=== PATIENT | female | born 1965 | race Caucasian/White ===

== ENCOUNTER 2018-03-26 20:19 | Observation (INO) | payer BC ==
[2018-03-26 20:58] LABS: Anisocytosis Slight; Basophils % (A) 0 %; Eosinophils # (A) 0.1 k/uL (0-0.7); Eosinophils % (A) 1 %; HCT 35.7 % (34.0-46.0); HGB 10.6 gm/dL (11.4-16.0); Hypochromasia Marked; Lymphocytes # (A) 1.6 k/uL (1.0-4.8); Lymphocytes % (A) 18 %; MCH 19.3 pg (25.0-35.0); MCHC 29.8 g/dL (31.0-37.0); MCV 64.8 fL (80.0-100.0); Mean Platelet Volume 6.2; Microcytosis Marked; Monocytes # (A) 0.2 k/uL (0-1.0); Monocytes % (A) 3 %; Neutrophils # (A) 6.9 k/uL (1.3-7.7); Neutrophils % (A) 77 %; Platelet Count 334 k/uL (150-450); Poikilocytosis Slight; RBC 5.51 m/uL (3.80-5.40); RDW 17.2 % (11.5-15.5); WBC 8.9 k/uL (3.8-10.6)
--- NOTE | 2018-03-26 21:04 | XR ---
EXAMINATION TYPE: XR chest 2V DATE OF EXAM: 03/26/2018 COMPARISON: NONE HISTORY: Chest pain TECHNIQUE: Frontal and lateral views of the chest are obtained. FINDINGS: Right infrahilar peribronchial cuffing seen on the lateral and frontal images around the br onchus intermedius may relate to bronchitis or reactive airway disease. There is no focal air space o pacity, pleural effusion, or pneumothorax seen. The cardiac silhouette size is upper limits of rubin l. The osseous structures are intact. IMPRESSION: Peribronchial cuffing around the bronchus intermedius may relate to bronchitis or reacti ve airway disease.
[2018-03-26 21:05] LABS: Partial Thromboplastin Time 23.3 sec (22.0-30.0)
[2018-03-26 21:13] LABS: ALT 14 U/L (9-52); AST 23 U/L (14-36); Albumin 4.2 g/dL (3.5-5.0); Alkaline Phosphatase 64 U/L (38-126); Anion Gap 10 mmol/L; Blood Urea Nitrogen 7 mg/dL (7-17); Calcium 9.2 mg/dL (8.4-10.2); Carbon Dioxide 20 mmol/L (22-30); Chloride 108 mmol/L (98-107); Glucose 95 mg/dL (74-99); Magnesium 1.9 mg/dL (1.6-2.3); Potassium 3.6 mmol/L (3.5-5.1); Sodium 138 mmol/L (137-145); Total Bilirubin 0.6 mg/dL (0.2-1.3); Total Protein 6.9 g/dL (6.3-8.2)
[2018-03-26 21:17] LABS: Creatine Kinase 67 U/L (30-135)
[2018-03-26 21:30] LABS: Creatine Kinase MB 0.4 ng/mL (0.0-2.4); Troponin I <0.012 ng/mL (0.000-0.034)
[2018-03-26] MEDS ORDERED: SODIUM CHLORIDE 0.9% 1,000 ML IV STA (21:34)
--- NOTE | 2018-03-26 22:02 | ED ---
General Adult HPI - General Chief complaint: Chest Pain Stated complaint: Chest Pain Time Seen by Provider: 03/26/18 20:26 Source: patient, RN notes reviewed, old records reviewed Mode of arrival: wheelchair Limitations: no limitations - History of Present Illness Initial comments: This is a 52-year-old female the ER for evaluation no medical history company of chest pain weakness. Patient has no medical history. No recent travel history or sick contacts no headaches. Patient is having difficulty expressing story difficulty speaking with staff, noncontributory to history and physical, the patient does currently chest pain, weakness, - Related Data Home Medications Medication Instructions Recorded Confirmed Ibuprofen [Advil] 600 mg PO Q8HR PRN 03/26/18 03/26/18 Allergies Allergy/AdvReac Type Severity Reaction Status Date / Time No Known Allergies Allergy Verified 03/26/18 21:11 Review of Systems ROS Statement: Those systems with pertinent positive or pertinent negative responses have been documented in the HPI. ROS Other: All systems not noted in ROS Statement are negative. Past Medical History Past Medical History: No Reported History History of Any Multi-Drug Resistant Organisms: None Reported Past Surgical History: No Surgical Hx Reported Past Psychological History: No Psychological Hx Reported Smoking Status: Current every day smoker Past Alcohol Use History: None Reported Past Drug Use History: None Reported General Exam Limitations: no limitations General appearance: alert, in no apparent distress, lethargic Head exam: Present: atraumatic, normocephalic, normal inspection Eye exam: Present: normal appearance, PERRL, EOMI. Absent: scleral icterus, conjunctival injection, periorbital swelling ENT exam: Present: normal exam, mucous membranes moist Neck exam: Present: normal inspection. Absent: tenderness, meningismus, lymphadenopathy Respiratory exam: Present: normal lung sounds bilaterally. Absent: respiratory distress, wheezes, rales, rhonchi, stridor Cardiovascular Exam: Present: regular rate, normal rhythm, normal heart sounds. Absent: systolic murmur, diastolic murmur, rubs, gallop, clicks GI/Abdominal exam: Present: soft, normal bowel sounds. Absent: distended, tenderness, guarding, rebound, rigid Extremities exam: Present: normal inspection, full ROM, normal capillary refill. Absent: tenderness, pedal edema, joint swelling, calf tenderness Back exam: Present: normal inspection Neurological exam: Present: alert, oriented X3, CN II-XII intact Psychiatric exam: Present: normal affect, normal mood Skin exam: Present: warm, dry, intact, normal color. Absent: rash Course Vital Signs 03/26/18 03/26/18 03/26/18 20:24 20:27 21:15 Temperature 98.5 F 97.6 F Pulse Rate 120 H 103 H 90 Respiratory 22 20 16 Rate Blood Pressure 154/82 122/76 150/70 O2 Sat by Pulse 100 100 100 Oximetry 03/26/18 21:43 Temperature Pulse Rate 85 Respiratory Rate Blood Pressure 158/77 O2 Sat by Pulse 100 Oximetry - Reevaluation(s) Reevaluation #1: 03/26/18 22:25 Medical history is reviewed and noncontributory Reevaluation #2: 03/26/18 22:25 Patient continues to be in remain acidotic EKG Findings - EKG Comments: EKG Findings:: EKG shows sinus tachycardia rate 102, IA 144, QRS 90, QTc 479 Medical Decision Making - Medical Decision Making 52 female with multiple nonspecific complaints. Patient with chest pain weakness. X-ray CTA chest negative currently. Patient will be admitted for continued neurological assessment evaluation for pending illogical complaint at this point patient be kept off) of symptoms being so atypical, admitted for cardiac observation - Lab Data Result diagrams: 03/26/18 20:42 03/26/18 20:42 Lab Results 03/26/18 03/26/18 03/26/18 Range/Units 20:42 20:42 20:42 WBC 8.9 (3.8-10.6) k/uL RBC 5.51 H (3.80-5.40) m/uL Hgb 10.6 L (11.4-16.0) gm/dL Hct 35.7 (34.0-46.0) % MCV 64.8 L (80.0-100.0) fL MCH 19.3 L (25.0-35.0) pg MCHC 29.8 L (31.0-37.0) g/dL RDW 17.2 H (11.5-15.5) % Plt Count 334 (150-450) k/uL Neutrophils % 77 % Lymphocytes % 18 % Monocytes % 3 % Eosinophils % 1 % Basophils % 0 % Neutrophils # 6.9 (1.3-7.7) k/uL Lymphocytes # 1.6 (1.0-4.8) k/uL Monocytes # 0.2 (0-1.0) k/uL Eosinophils # 0.1 (0-0.7) k/uL Basophils # 0.0 (0-0.2) k/uL Hypochromasia Marked Poikilocytosis Slight Anisocytosis Slight Microcytosis Marked PT (9.0-12.0) sec INR (<1.2) APTT (22.0-30.0) sec Sodium 138 (137-145) mmol/L Potassium 3.6 (3.5-5.1) mmol/L Chloride 108 H (98-107) mmol/L Carbon Dioxide 20 L (22-30) mmol/L Anion Gap 10 mmol/L BUN 7 (7-17) mg/dL Creatinine 0.61 (0.52-1.04) mg/dL Est GFR (CKD-EPI)AfAm >90 (>60 ml/min/1.73 sqM) Est GFR (CKD-EPI)NonAf >90 (>60 ml/min/1.73 sqM) Glucose 95 (74-99) mg/dL Calcium 9.2 (8.4-10.2) mg/dL Magnesium 1.9 (1.6-2.3) mg/dL Total Bilirubin 0.6 (0.2-1.3) mg/dL AST 23 (14-36) U/L ALT 14 (9-52) U/L Alkaline Phosphatase 64 (38-126) U/L Total Creatine Kinase 67 (30-135) U/L CK-MB (CK-2) 0.4 (0.0-2.4) ng/mL CK-MB (CK-2) Rel Index 0.6 Troponin I <0.012 (0.000-0.034) ng/mL Total Protein 6.9 (6.3-8.2) g/dL Albumin 4.2 (3.5-5.0) g/dL 03/26/18 Range/Units 20:42 WBC (3.8-10.6) k/uL RBC (3.80-5.40) m/uL Hgb (11.4-16.0) gm/dL Hct (34.0-46.0) % MCV (80.0-100.0) fL MCH (25.0-35.0) pg MCHC (31.0-37.0) g/dL RDW (11.5-15.5) % Plt Count (150-450) k/uL Neutrophils % % Lymphocytes % % Monocytes % % Eosinophils % % Basophils % % Neutrophils # (1.3-7.7) k/uL Lymphocytes # (1.0-4.8) k/uL Monocytes # (0-1.0) k/uL Eosinophils # (0-0.7) k/uL Basophils # (0-0.2) k/uL Hypochromasia Poikilocytosis Anisocytosis Microcytosis PT 10.0 (9.0-12.0) sec INR 1.0 (<1.2) APTT 23.3 (22.0-30.0) sec Sodium (137-145) mmol/L Potassium (3.5-5.1) mmol/L Chloride (98-107) mmol/L Carbon Dioxide (22-30) mmol/L Anion Gap mmol/L BUN (7-17) mg/dL Creatinine (0.52-1.04) mg/dL Est GFR (CKD-EPI)AfAm (>60 ml/min/1.73 sqM) Est GFR (CKD-EPI)NonAf (>60 ml/min/1.73 sqM) Glucose (74-99) mg/dL Calcium (8.4-10.2) mg/dL Magnesium (1.6-2.3) mg/dL Total Bilirubin (0.2-1.3) mg/dL AST (14-36) U/L ALT (9-52) U/L Alkaline Phosphatase (38-126) U/L Total Creatine Kinase (30-135) U/L CK-MB (CK-2) (0.0-2.4) ng/mL CK-MB (CK-2) Rel Index Troponin I (0.000-0.034) ng/mL Total Protein (6.3-8.2) g/dL Albumin (3.5-5.0) g/dL - Radiology Data Radiology results: report reviewed (Chest x-ray CTA chest negative), image reviewed Disposition Clinical Impression: Chest pain, Atypical chest pain, Weakness Disposition: ADMITTED IP TO THIS [facility] Condition: Undetermined Instructions: Chest Pain (ED) Is patient prescribed a controlled substance at d/c from ED?: No Referrals: None,Stated [Primary Care Provider] - 1-2 days
[2018-03-26] MEDS ORDERED: NITROGLYCERIN SL TABS 0.4 MG TAB SUBLINGUAL PRN (22:22)
[2018-03-26] MEDS ORDERED: ASPIRIN 81 MG PO STA (22:22)
--- NOTE | 2018-03-26 22:26 | CT ---
EXAMINATION TYPE: CT angio chest DATE OF EXAM: 03/26/2018 10:16 PM COMPARISON: None HISTORY: Chest pain and weakness. CT DLP: 274.6 mGycm Automated exposure control for dose reduction was used. CONTRAST: CTA scan of the thorax is performed with IV Contrast, patient injected with 72ml mL of Isovue 370, pu lmonary embolism protocol. There are 3-D post processed images.. FINDINGS: There is patchy mild infiltrate and atelectasis at the posterior lung bases. There is no evidence of pulmonary mass. There is no pleural effusion. There are multiple calcified splenic granulomata. There is no pericardial effusion. Thoracic aorta appears normal. There is no sign of aneurysm or dissection. Ascending aorta measures 3 .5 cm. There are no filling defects in the pulmonary arteries. There are no hilar masses. There is no mediastinal adenopathy. There is hypertrophic mild spurring in the thoracic spine. IMPRESSION: MILD INFILTRATE AND ATELECTASIS AT THE LUNG BASES. NO EVIDENCE OF PULMONARY EMBOLISM.
[2018-03-26 23:08] VITALS: BMI 21.7
[2018-03-27 00:48] LABS: Cholesterol 147 mg/dL (<200); HDL Cholesterol 49 mg/dL (40-60); LDL Cholesterol,Calculated 80 mg/dL (0-99); Triglycerides 88 mg/dL (<150)
[2018-03-27 03:37] LABS: Creatine Kinase 49 U/L (30-135)
[2018-03-27 03:50] LABS: Creatine Kinase MB <0.2 ng/mL (0.0-2.4); Troponin I <0.012 ng/mL (0.000-0.034)
[2018-03-27 08:01] VITALS: RESP 18
[2018-03-27 08:47] LABS: Creatine Kinase 47 U/L (30-135)
[2018-03-27 09:00] LABS: Creatine Kinase MB 0.2 ng/mL (0.0-2.4); Troponin I <0.012 ng/mL (0.000-0.034)
[2018-03-27] MEDS ORDERED: ENOXAPARIN 40 MG/0.4 ML SYRINGE SQ SCH (09:00)
[2018-03-27] MEDS ORDERED: ASPIRIN 325 MG TAB PO SCH (09:00)
--- NOTE | 2018-03-27 09:22 | US ---
EXAMINATION TYPE: US carotid duplex BILAT DATE OF EXAM: 03/27/2018 COMPARISON: NONE CLINICAL HISTORY: Pain. arm and leg numbness last night, no HTN but patient states her BP was higher than usual last night EXAM MEASUREMENTS: RIGHT: Peak Systolic Velocity (PSV) cm/sec ----- Right CCA: 74.6 ----- Right ICA: 90.8 ----- Right ECA: 104.0 ICA/CCA ratio: 1.2 RIGHT: End Diastole cm/sec ----- Right CCA: 27.4 ----- Right ICA: 36.9 ----- Right ECA: 22.6 LEFT: Peak Systolic Velocity (PSV) cm/sec ----- Left CCA: 96.3 ----- Left ICA: 76.5 ----- Left ECA: 109.5 ICA/CCA ratio: 0.8 LEFT: End Diastole cm/sec ----- Left CCA: 36.9 ----- Left ICA: 38.0 ----- Left ECA: 21.5 VERTEBRALS (direction of flow): Right Vertebral: Antegrade Left Vertebral: Antegrade Rhythm: Normal No wall thickening, elevated velocities or significant stenosis. Small posterior plaque seen in righ t bulb. IMPRESSION: Mild degree of grayscale atheromatous plaquing with no sonographically evident hemodynam ically significant stenosis within either visualized carotid arterial system.
--- NOTE | 2018-03-27 10:23 | P.CRDCN ---
History of Present Illness History of present illness: Mrs. Hameed is a pleasant 52-year-old female past medical history significant for chronic nicotine dependence. She denies history of hypertension, dyslipidemia, diabetes mellitus or coronary artery disease. She has never seen a tectonophysicist undergone any sort of cardiac testing in the past. We've been asked to see her in consultation for symptoms of chest discomfort. She states yesterday afternoon between 4-5 p.m. she had an acute onset of heaviness in the midsternal region associated with shortness of breath. She states it was a very heavy sensation in the chest with no specific aggravating factors. The heaviness in the chest seemed to be worse when she took a deep breath but has been consistent since the onset. She denies associated palpitations, nausea, vomiting, dizziness or diaphoresis. There is no radiation of the pain to the arm, back, neck or jaw. She also denies cough, fever or chills. She denies PND or orthopnea. She does describe having a sensation of numbness and tingling in both hands and feet at times throughout the night. At the time of my exam she is seen resting comfortably in bed in no acute distress and describes a discomfort in the chest at about a 3 out of 10. EKG on arrival reveals sinus tachycardia heart rate of 102 with evidence of minimal ST depression noted in the inferior, anterior and lateral leads. Repeat EKG this morning reveals sinus mechanism with no acute ST or T-wave abnormalities. Chest x-ray reveals parabronchial cuffing around the bronchus intermedius May related to bronchitis or reactive airway disease. CT angios of the chest reveals mild infiltrate and atelectasis at bilateral bases with no evidence of pulmonary embolism, and no evidence of aortic aneurysm or dissection. Laboratory data reviewed, hemoglobin 10.6, platelets 334, sodium 138, potassium 3.6, magnesium 1.9, creatinine 0.6, cardiac enzymes negative 3, LDL 80, HDL 49 , TSH 1.69. She takes no daily medications and are no old records to review. Review of Systems At the time of my exam: CONSTITUTIONAL: Denies fever. Denies chills. EYES: Denies blurred vision. Denies vision changes. Denies eye pain. EARS, NOSE, MOUTH & THROAT: Denies headache. Denies sore throat. Denies ear pain. CARDIOVASCULAR: chest pain. Denies shortness of breath. Denies orthopnea. Denies PND. Denies palpitations. RESPIRATORY: Denies cough. GASTROINTESTINAL: Denies abdominal pain. Denies diarrhea. Denies constipation. Denies nausea. Denies vomiting. MUSCULOSKELETAL: Denies myalgias. INTEGUMENTARY: Denies pruitis. Denies rash. NEUROLOGIC: Denies numbness. Denies tingling. Denies weakness. PSYCHIATRIC: Denies anxiety. Denies depression. ENDOCRINE: Denies fatigue. Denies weight change. Denies polydipsia. Denies polyurina. GENITOURINARY: Denies burning, hematuria or urgency with micturation. HEMATOLOGIC: Denies history of anemia. Denies bleeding. Past Medical History Past Medical History: No Reported History History of Any Multi-Drug Resistant Organisms: None Reported Past Surgical History: No Surgical Hx Reported Additional Past Surgical History / Comment(s): back surgery 2007 Past Anesthesia/Blood Transfusion Reactions: No Reported Reaction Past Psychological History: No Psychological Hx Reported Smoking Status: Current every day smoker Past Alcohol Use History: None Reported Past Drug Use History: None Reported - Past Family History Father Additional Family Medical History / Comment(s): PE and DVT Mother Family Medical History: Coronary Artery Disease (CAD) Additional Family Medical History / Comment(s): 1st heart attack at 50 - passed at 67 from CAD Medications and Allergies Home Medications Medication Instructions Recorded Confirmed Type Ibuprofen [Advil] 600 mg PO Q8HR PRN 03/26/18 03/26/18 History Allergies Allergy/AdvReac Type Severity Reaction Status Date / Time No Known Allergies Allergy Verified 03/26/18 21:11 Physical Exam Vitals: Vital Signs Temp Pulse Pulse Resp BP BP Pulse Ox 03/27/18 07:30 98.5 F 77 18 118/69 95 03/27/18 04:00 87 16 03/27/18 03:42 98.7 F 87 16 114/69 95 03/27/18 00:00 16 03/26/18 22:55 98.5 F 92 16 134/70 100 03/26/18 21:43 85 158/77 100 03/26/18 21:15 90 16 150/70 100 03/26/18 20:27 97.6 F 103 H 20 122/76 100 03/26/18 20:24 98.5 F 120 H 22 154/82 100 Intake and Output 03/26/18 03/27/18 03/27/18 22:59 06:59 14:59 Other: Voiding Method Toilet # Voids 2 2 Weight 62.1 kg 62.1 kg Blood pressure 118/69 heart rate 77 afebrile maintaining oxygen saturation on room air GENERAL: This is a 52-year-old female in no apparent distress at the time of my examination. HEENT: Head is atraumatic, normocephalic. Pupils are equal, round. Sclerae anicteric. Conjunctivae are clear. Mucous membranes of the mouth are moist. Neck is supple. There is no jugular venous distention. No carotid bruit is heard. LUNGS: Clear to auscultation no wheezes, rales or rhonchi. No chest wall tenderness is noted on palpation or with deep breathing. HEART: Regular rate and rhythm without murmurs, rubs or gallops. S1 and S2 heard. ABDOMEN: Soft, nontender. Bowel sounds are heard. No organomegaly noted. EXTREMITIES: No evidence of peripheral edema and no calf tenderness noted. VASCULAR: Radial and dorsalis pedis pulses palpated, no evidence of clubbing. NEUROLOGIC: Patient is awake, alert and oriented x3. Results 03/26/18 20:42 03/26/18 20:42 Cardiac Enzymes 03/26/18 03/26/18 03/27/18 Range/Units 20:42 20:42 02:40 AST 23 (14-36) U/L CK-MB (CK-2) 0.4 <0.2 (0.0-2.4) ng/mL Troponin I <0.012 <0.012 (0.000-0.034) ng/mL Coagulation 03/26/18 Range/Units 20:42 PT 10.0 (9.0-12.0) sec APTT 23.3 (22.0-30.0) sec Lipids 03/26/18 Range/Units 20:42 Triglycerides 88 (<150) mg/dL Cholesterol 147 (<200) mg/dL HDL Cholesterol 49 (40-60) mg/dL CBC 03/26/18 Range/Units 20:42 WBC 8.9 (3.8-10.6) k/uL RBC 5.51 H (3.80-5.40) m/uL Hgb 10.6 L (11.4-16.0) gm/dL Hct 35.7 (34.0-46.0) % Plt Count 334 (150-450) k/uL Comprehensive Metabolic Panel 03/26/18 Range/Units 20:42 Sodium 138 (137-145) mmol/L Potassium 3.6 (3.5-5.1) mmol/L Chloride 108 H (98-107) mmol/L Carbon Dioxide 20 L (22-30) mmol/L BUN 7 (7-17) mg/dL Creatinine 0.61 (0.52-1.04) mg/dL Glucose 95 (74-99) mg/dL Calcium 9.2 (8.4-10.2) mg/dL AST 23 (14-36) U/L ALT 14 (9-52) U/L Alkaline Phosphatase 64 (38-126) U/L Total Protein 6.9 (6.3-8.2) g/dL Albumin 4.2 (3.5-5.0) g/dL Current Medications Generic Name Dose Route Start Last Admin Trade Name Freq PRN Reason Stop Dose Admin Aspirin 325 mg 03/27/18 09:00 Aspirin PO DAILY [facility] Enoxaparin Sodium 40 mg 03/27/18 09:00 Lovenox SQ DAILY [facility] Nitroglycerin 0.4 mg 03/26/18 22:22 Nitrostat SUBLINGUAL Q5M PRN Chest Pain Intake and Output 03/26/18 03/27/18 03/27/18 22:59 06:59 14:59 Other: Voiding Method Toilet # Voids 2 2 Weight 62.1 kg 62.1 kg 03/26/18 20:42 03/26/18 20:42 Assessment and Plan Assessment: ASSESSMENT Chest pain, atypical. An acute coronary event has been ruled out. May be related to reactive airway disease. Chronic nicotine dependence Family history of premature coronary artery disease in both parents PLAN Obtain echocardiogram and Doppler study to assess cardiac structure and function. Perform stress echocardiogram to assess for stress-induced cardiac ischemia. If stress test is normal she is stable from a cardiac perspective. Smoking cessation highly recommended. Thank you kindly for this consultation. The above impression and plan of care have been discussed and directed by the signing physician. Maddy Fox, nurse practitioner, acting as scribe for signing physician.
--- NOTE | 2018-03-27 11:03 | ECHOF ---
Referral Reason:cp MEASUREMENTS -------- HEIGHT: 162.6 cm WEIGHT: 61.7 kg BP: IVSd: 1.1 cm (0.6 - 1.1) LVIDd: 4.1 cm (3.9 - 5.3) LVPWd: 1.3 cm (0.6 - 1.1) IVSs: 1.3 cm LVIDs: 3.8 cm LVPWs: 1.1 cm LAESV Index (A-L): 29.06 ml/m Ao Diam: 3.6 cm (2.0 - 3.7) AV Cusp: 2.0 cm (1.5 - 2.6) LA Diam: 4.4 cm (2.7 - 3.8) MV EXCURSION: 17.614 mm (> 18.000) MV EF SLOPE: 53 mm/s (70 - 150) EPSS: 0.6 cm MV E Jairo: 0.73 m/s MV DecT: 177 ms MV A Jairo: 0.94 m/s MV E/A Ratio: 0.78 RAP: 5.00 mmHg RVSP: 21.47 mmHg FINDINGS -------- Sinus rhythm. This was a technically good study. LV size, wall thickness and systolic function are normal, with an EF greater than 55%. The left yousuf tricular size is normal. The right ventricle is normal in size. The left atrium is mildly dilated. LA is midly dilated 29-33ml/m2. The right atrial size is normal. The aortic valve is trileaflet, and appears structurally normal. No aortic stenosis or regurgitation. Mild mitral annular calcification present. Mild mitral regurgitation is present. Mild tricuspid regurgitation present. There is no evidence of pulmonary hypertension. The right v entricular systolic pressure, as measured by Doppler, is 21.47mmHg. There is no pulmonic regurgitation present. The aortic root size is normal. There is no pericardial effusion. CONCLUSIONS -------- 1. LV size, wall thickness and systolic function are normal, with an EF greater than 55%. 2. The left ventricular size is normal. 3. The right ventricle is normal in size. 4. The left atrium is mildly dilated. 5. LA is midly dilated 29-33ml/m2. 6. The right atrial size is normal. 7. The aortic valve is trileaflet, and appears structurally normal. No aortic stenosis or regurgitati on. 8. Mild mitral annular calcification present. 9. Mild mitral regurgitation is present. 10. Mild tricuspid regurgitation present. 11. There is no evidence of pulmonary hypertension. 12. The right ventricular systolic pressure, as measured by Doppler, is 21.47mmHg. 13. There is no pulmonic regurgitation present. 14. The aortic root size is normal. 15. There is no pericardial effusion. JUNIOR ARCHITECT: Shireen Hurst RDCS
--- NOTE | 2018-03-27 11:39 | ECHOS ---
STRESS ECHOCARDIOGRAM INDICATIONS: Chest pain MEDICATIONS: None BASELINE HEART RATE: 73 BASELINE BLOOD PRESSURE: 113/59 MAXIMUM HEART RATE: 146 MAXIMUM BLOOD PRESSURE: 167/82 85% MPHR: 144 100% MPHR: 169 METS: 7.1 MAXIMUM STAGE REACHED: 2 TOTAL EXERCISE TIME: 5:30 CLINICAL INFORMATION: Chest pain. CLINICAL INFORMATION: Baseline EKG shows sinus rhythm, normal axis, normal intervals, with nonspecific ST-T wave changes. The patient exercised on Tenzin protocol for a total of 5:30 minutes achieving 7 METS, 86% of predicted maximal heart rate and had chest discomfort and lightheadedness. At peak exercise, there was [address]-segment depression noted in the inferolateral leads. Baseline echo shows normal left ventricular size wall motion systolic function. Postexercise there is normal hyperdynamic response of all segments of myocardium noted. CONCLUSION: 1. Average exercise tolerance. 2. Abnormal stress test by EKG criteria. 3. Normal stress echo. MMDENNISL / LAKESHAN: [id number] /
[2018-03-27 11:55] VITALS: BP 107/67; PULSE 76; TEMP 98.1
--- NOTE | 2018-03-27 15:23 | P.HPIM ---
History of Present Illness 52-year-old came in with complaints of chest pain in the retrosternal area pressure-like sensation moderate not associated with diaphoresis associated nausea vomiting some pleuritic competent patient had a CT angios the chest which is negative for pulmonary embolism no pneumonia patient denied any cough patient's chest pain is not associated with food does not feel like acid reflux. Patient had a stress test which was negative patient was ruled out acute coronary syndromes. Patient chest pain is probably musculoskeletal improved now patient was bit lightheaded because of which I believe she had a carotid Doppler which did not show any significant abnormality. Patient will be discharged today. Review of Systems REVIEW OF SYSTEMS: CONSTITUTIONAL: No fever, no malaise, no fatigue. HEENT: No recent visual problems or hearing problems. Denied any sore throat. CARDIOVASCULAR: No orthopnea, PND, no palpitations, no syncope. PULMONARY: No shortness of breath, no cough, no hemoptysis. GASTROINTESTINAL: No diarrhea, no nausea, no vomiting, no abdominal pain. Normoactive bowel sounds. NEUROLOGICAL: No headaches, no weakness, no numbness. HEMATOLOGICAL: Denies any bleeding or petechiae. GENITOURINARY: Denies any burning micturition, frequency, or urgency. MUSCULOSKELETAL/RHEUMATOLOGICAL: Denies any joint pain, swelling, or any muscle pain. ENDOCRINE: Denies any polyuria or polydipsia. The rest of the 14-point review of systems is negative. Past Medical History Past Medical History: No Reported History History of Any Multi-Drug Resistant Organisms: None Reported Past Surgical History: No Surgical Hx Reported Additional Past Surgical History / Comment(s): back surgery 2007 Past Anesthesia/Blood Transfusion Reactions: No Reported Reaction Past Psychological History: No Psychological Hx Reported Smoking Status: Current every day smoker Past Alcohol Use History: None Reported Past Drug Use History: None Reported - Past Family History Father Additional Family Medical History / Comment(s): PE and DVT Mother Family Medical History: Coronary Artery Disease (CAD) Additional Family Medical History / Comment(s): 1st heart attack at 50 - passed at 67 from CAD Medications and Allergies Home Medications Medication Instructions Recorded Confirmed Type Ibuprofen [Advil] 600 mg PO Q8HR PRN 03/26/18 03/26/18 History Allergies Allergy/AdvReac Type Severity Reaction Status Date / Time No Known Allergies Allergy Verified 03/26/18 21:11 Physical Exam Vitals: Vital Signs Temp Pulse Pulse Resp BP BP BP 03/27/18 12:00 76 18 03/27/18 11:40 98.1 F 76 18 107/67 03/27/18 08:00 77 18 03/27/18 07:30 98.5 F 77 18 118/69 03/27/18 04:00 87 16 03/27/18 03:42 98.7 F 87 16 114/69 03/27/18 00:00 16 03/26/18 22:55 98.5 F 92 16 134/70 03/26/18 21:43 85 158/77 03/26/18 21:15 90 16 150/70 03/26/18 20:27 97.6 F 103 H 20 122/76 03/26/18 20:24 98.5 F 120 H 22 154/82 Pulse Ox 03/27/18 12:00 03/27/18 11:40 98 03/27/18 08:00 03/27/18 07:30 95 03/27/18 04:00 03/27/18 03:42 95 03/27/18 00:00 03/26/18 22:55 100 03/26/18 21:43 100 03/26/18 21:15 100 03/26/18 20:27 100 03/26/18 20:24 100 Intake and Output 03/27/18 03/27/18 03/27/18 06:59 14:59 22:59 Other: Voiding Method Toilet Toilet # Voids 2 1 Weight 62.1 kg 61.689 kg PHYSICAL EXAMINATION: GENERAL: The patient is alert and oriented x3, not in any acute distress. Well developed, well nourished. HEENT: Pupils are round and equally reacting to light. EOMI. No scleral icterus. No conjunctival pallor. Normocephalic, atraumatic. No pharyngeal erythema. No thyromegaly. CARDIOVASCULAR: S1 and S2 present. No murmurs, rubs, or gallops. PULMONARY: Chest is clear to auscultation, no wheezing or crackles. ABDOMEN: Soft, nontender, nondistended, normoactive bowel sounds. No palpable organomegaly. MUSCULOSKELETAL: No joint swelling or deformity. EXTREMITIES: No cyanosis, clubbing, or pedal edema. NEUROLOGICAL: Gross neurological examination did not reveal any focal deficits. SKIN: No rashes. Results CBC & Chem 7: 03/26/18 20:42 03/26/18 20:42 Labs: Abnormal Lab Results - Last 24 Hours (Table) 03/26/18 03/26/18 Range/Units 20:42 20:42 RBC 5.51 H (3.80-5.40) m/uL Hgb 10.6 L (11.4-16.0) gm/dL MCV 64.8 L (80.0-100.0) fL MCH 19.3 L (25.0-35.0) pg MCHC 29.8 L (31.0-37.0) g/dL RDW 17.2 H (11.5-15.5) % Chloride 108 H (98-107) mmol/L Carbon Dioxide 20 L (22-30) mmol/L Thrombosis Risk Factor Assmnt - Choose All That Apply Each Factor Represents 1 point: Age 41-60 years Thrombosis Risk Factor Assessment Total Risk Factor Score: 1 Thrombosis Risk Factor Assessment Level: Low Risk Assessment and Plan Plan: Chest pain: Rule out pulmonary embolism, acute myocardial infarction. Patient has a negative stress test CT angios negative -Nicotine dependence: Counseling was provided
--- NOTE | 2018-03-27 15:24 | P.DS ---
Providers Date of admission: 03/26/18 22:22 Attending physician: Jalen Sotelo Consults: 03/26/18 22:22 Consult Physician Urgent Consulting Provider: Maria Isabel Baez Consult Reason/Comments: cp Do you want consulting provider notified?: Yes Primary care physician: Stated None Hospital Course: Please refer to HPI Patient Condition at Discharge: Undetermined Plan - Discharge Summary New Discharge Prescriptions: No Action Ibuprofen [Advil] 600 mg PO Q8HR PRN PRN Reason: Pain Discharge Medication List Ibuprofen [Advil] 600 mg PO Q8HR PRN 03/26/18 [History] Follow up Appointment(s)/Referral(s): Maurisio Madera MD [REFERRING] - 04/09/18 9:20 am None,Stated [Primary Care Provider] - 1-2 days Orlin Ayala MD [STAFF PHYSICIAN] - 04/11/18 4:30 pm Patient Instructions/Handouts: Chest Pain (ED) Discharge Disposition: HOME SELF-CARE
== END 2018-03-27 12:10 | disposition home or self-care (01) ==
LOC: EC 20:19 → 3OBS 22:22
PROVIDERS: ADMIT Hospitalist; ATTEND Hospitalist
DX: F17.200 Nicotine dependence, unspecified, uncomplicated (principal); R07.89 Other chest pain; R53.1 Weakness; R06.02 Shortness of breath; R20.2 Paresthesia of skin; R20.0 Anesthesia of skin; Z82.49 Family history of ischemic heart disease and other diseases of the circulatory system; R11.2 Nausea with vomiting, unspecified; R07.81 Pleurodynia; R42 Dizziness and giddiness; Z83.2 Family history of diseases of the blood and blood-forming organs and certain disorders involving the immune mechanism
CPT/HCPCS: 99285 ×2; 36415; 93005; 93306; 93351; 80061; 80053; 84443; 82550 ×2; 82553 ×2; 83735; 84484 ×2; 85025; 85610; 85730; 71046; 93880; 71275; G0378 ×2; Q9967

== ENCOUNTER 2018-07-27 21:37 | Emergency (ER) | payer BC ==
[2018-07-27] MEDS ORDERED: MORPHINE SULFATE 4 MG/ML SYRINGE IV STA (22:45)
[2018-07-27] MEDS ORDERED: SODIUM CHLORIDE 0.9% 1,000 ML IV ONE (22:45)
[2018-07-27 23:47] LABS: Anisocytosis Slight; Basophils % (A) 0 %; Eosinophils # (A) 0.2 k/uL (0-0.7); Eosinophils % (A) 2 %; HCT 34.6 % (34.0-46.0); HGB 10.2 gm/dL (11.4-16.0); Hypochromasia Marked; Lymphocytes # (A) 2.4 k/uL (1.0-4.8); Lymphocytes % (A) 24 %; MCH 19.9 pg (25.0-35.0); MCHC 29.4 g/dL (31.0-37.0); MCV 67.7 fL (80.0-100.0); Mean Platelet Volume 6.2; Microcytosis Marked; Monocytes # (A) 0.5 k/uL (0-1.0); Monocytes % (A) 5 %; Neutrophils # (A) 6.9 k/uL (1.3-7.7); Neutrophils % (A) 67 %; Platelet Count 338 k/uL (150-450); RBC 5.11 m/uL (3.80-5.40); RDW 16.6 % (11.5-15.5); WBC 10.3 k/uL (3.8-10.6)
--- NOTE | 2018-07-27 23:47 | ED ---
Female Urogenital HPI - General Chief complaint: Vaginal Bleeding Stated complaint: Female Time Seen by Provider: 07/27/18 22:24 Source: patient Mode of arrival: ambulatory Limitations: no limitations - History of Present Illness Initial comments: Patient is a 53-year-old female presenting for vaginal bleeding. Patient states that she has had normally regular periods although last month, she has an episode where she had a period for 3 weeks. Today around 6 PM, she states that she started passing dark red blood clots and she went through 2 pads. She also admits to some bilateral lower cramping which feels like a stabbing sensation is been constant. It does not radiate and she took multiple doses of Advil which also did not help. She states that she is in a monogamous relationship and has very little concern for STDs but she does admit to some yellow discharge earlier today. Last Menstrual Period: 07/27/18 - Related Data Previous Rx's Medication Instructions Recorded HYDROcodone/APAP 5-325MG [Chauvin 1 tab PO Q6HR PRN #12 tab 07/28/18 5-325] Sulfamethox-Tmp 800-160Mg [Bactrim 1 tab PO Q12HR 3 Days #6 tab 07/28/18 DS 800-160 mg] metroNIDAZOLE [Flagyl] 500 mg PO BID 7 Days #14 tab 07/28/18 Allergies Allergy/AdvReac Type Severity Reaction Status Date / Time No Known Allergies Allergy Verified 07/27/18 22:15 Review of Systems ROS Statement: Those systems with pertinent positive or pertinent negative responses have been documented in the HPI. Constitutional: Negative for chills, fatigue and fever. HENT: Negative for congestion. Respiratory: Negative for chest tightness, shortness of breath and wheezing. Negative for cough Cardiovascular: Negative for chest pain and palpitations. Gastrointestinal: Positive for abdominal pain. Negative for abdominal distention , diarrhea, nausea and vomiting. Genitourinary: Negative for dysuria. Positive for vaginal bleeding and vaginal discharge Musculoskeletal: Negative for back pain, neck pain and neck stiffness. Skin: Negative for color change. Neurological: Negative for dizziness, speech difficulty, weakness and light- headedness. Psychiatric/Behavioral: Negative for agitation and confusion. Negative for anxiety ROS Other: All systems not noted in ROS Statement are negative. Past Medical History Past Medical History: No Reported History History of Any Multi-Drug Resistant Organisms: None Reported Past Surgical History: Back Surgery Additional Past Surgical History / Comment(s): back surgery 2008, d and c Past Anesthesia/Blood Transfusion Reactions: No Reported Reaction Past Psychological History: No Psychological Hx Reported Smoking Status: Current every day smoker Past Alcohol Use History: None Reported Past Drug Use History: None Reported - Past Family History Father Additional Family Medical History / Comment(s): PE and DVT Mother Family Medical History: Coronary Artery Disease (CAD) Additional Family Medical History / Comment(s): 1st heart attack at 50 - passed at 67 from CAD General Exam - General Exam Comments Initial Comments: Constitutional: Pt is oriented to person, place, and time. Pt appears well- developed and well-nourished. No distress. HENT: Head: Normocephalic and atraumatic. Eyes: EOM are normal. Neck: Normal range of motion. Neck supple. Cardiovascular: Normal rate, regular rhythm, S1 normal, S2 normal and normal heart sounds. Exam reveals no gallop and no friction rub. No murmur heard. Pulmonary/Chest: Effort normal and breath sounds normal. No tachypnea and no bradypnea. No respiratory distress. No wheezes or rales noted. Abdominal: Soft. Bowel sounds are normal. Pt exhibits no shifting dullness, no distension, no pulsatile liver, no fluid wave, no abdominal bruit and no ascites. There is no tenderness. There is no rigidity, no rebound, no guarding, no tenderness at McBurney's point and negative Chirinos's sign. Musculoskeletal: Normal range of motion. : Os is closed. There is dark red blood in the vaginal canal. There is no adnexal tenderness or apparent discharge seen. Neurological: Pt is alert and oriented to person, place, and time. No cranial nerve deficit. Skin: Skin is warm and dry. No rash noted. Pt is not diaphoretic. No erythema. No pallor. Psychiatric: Pt has a normal mood and affect. Pt behavior is normal. Thought content normal. Limitations: no limitations Course Vital Signs 07/27/18 07/28/18 22:12 00:50 Temperature 98.2 F Pulse Rate 96 80 Respiratory 18 16 Rate Blood Pressure 134/82 144/85 O2 Sat by Pulse 99 100 Oximetry Medical Decision Making - Medical Decision Making Laboratory studies showed a hemoglobin was stable at 10.2 and there is no significant leukocytosis. Electrolytes were also within normal limits and there is no coagulopathies. Urinalysis was consistent with infection and therefore the patient was given a prescription for Bactrim. Additionally, trichomonas was positive and she was also given a prescription for Flagyl and empirically treated for gonorrhea and chlamydia with Rocephin and azithromycin. Ultrasound was performed and showed enlarged fibroid uterus with multiple cysts in the left and right adnexal regions. There is no evidence of ovarian torsion and because of this, it was felt that the patient could be safely discharged with his antibiotics and analgesics and follow-up with gynecology. Case is discussed with Dr. Ty who agreed with plan and stated that she would see the patient within the next 2-3 minutes business days. - Lab Data Result diagrams: 07/27/18 23:05 07/27/18 23:05 Lab Results 07/27/18 07/27/18 07/27/18 Range/Units 22:54 23:05 23:05 WBC 10.3 (3.8-10.6) k/uL RBC 5.11 (3.80-5.40) m/uL Hgb 10.2 L (11.4-16.0) gm/dL Hct 34.6 (34.0-46.0) % MCV 67.7 L (80.0-100.0) fL MCH 19.9 L (25.0-35.0) pg MCHC 29.4 L (31.0-37.0) g/dL RDW 16.6 H (11.5-15.5) % Plt Count 338 (150-450) k/uL Neutrophils % 67 % Lymphocytes % 24 % Monocytes % 5 % Eosinophils % 2 % Basophils % 0 % Neutrophils # 6.9 (1.3-7.7) k/uL Lymphocytes # 2.4 (1.0-4.8) k/uL Monocytes # 0.5 (0-1.0) k/uL Eosinophils # 0.2 (0-0.7) k/uL Basophils # 0.0 (0-0.2) k/uL Hypochromasia Marked Anisocytosis Slight Microcytosis Marked PT (9.0-12.0) sec INR (<1.2) APTT (22.0-30.0) sec Sodium 140 (137-145) mmol/L Potassium 4.3 (3.5-5.1) mmol/L Chloride 108 H (98-107) mmol/L Carbon Dioxide 22 (22-30) mmol/L Anion Gap 10 mmol/L BUN 8 (7-17) mg/dL Creatinine 0.52 (0.52-1.04) mg/dL Est GFR (CKD-EPI)AfAm >90 (>60 ml/min/1.73 sqM) Est GFR (CKD-EPI)NonAf >90 (>60 ml/min/1.73 sqM) Glucose 84 (74-99) mg/dL Calcium 9.2 (8.4-10.2) mg/dL Urine Color Urine Appearance (Clear) Urine pH (5.0-8.0) Ur Specific [place] (1.001-1.035) Urine Protein (Negative) Urine Glucose (UA) (Negative) Urine Ketones (Negative) Urine Blood (Negative) Urine Nitrite (Negative) Urine Bilirubin (Negative) Urine Urobilinogen (<2.0) mg/dL Ur Leukocyte Esterase (Negative) Urine RBC (0-5) /hpf Urine WBC (0-5) /hpf Ur Squamous Epith Cells (0-4) /hpf Urine Bacteria (None) /hpf Urine Mucus (None) /hpf Urine HCG, Qual (Not Detectd) Trichomonas Ag (Rapid) Positive H (Negative) Blood Type Blood Type Recheck Antibody Screen Spec Expiration Date 07/27/18 07/27/18 07/27/18 Range/Units 23:05 23:05 23:37 WBC (3.8-10.6) k/uL RBC (3.80-5.40) m/uL Hgb (11.4-16.0) gm/dL Hct (34.0-46.0) % MCV (80.0-100.0) fL MCH (25.0-35.0) pg MCHC (31.0-37.0) g/dL RDW (11.5-15.5) % Plt Count (150-450) k/uL Neutrophils % % Lymphocytes % % Monocytes % % Eosinophils % % Basophils % % Neutrophils # (1.3-7.7) k/uL Lymphocytes # (1.0-4.8) k/uL Monocytes # (0-1.0) k/uL Eosinophils # (0-0.7) k/uL Basophils # (0-0.2) k/uL Hypochromasia Anisocytosis Microcytosis PT 10.2 (9.0-12.0) sec INR 1.0 (<1.2) APTT 24.4 (22.0-30.0) sec Sodium (137-145) mmol/L Potassium (3.5-5.1) mmol/L Chloride (98-107) mmol/L Carbon Dioxide (22-30) mmol/L Anion Gap mmol/L BUN (7-17) mg/dL Creatinine (0.52-1.04) mg/dL Est GFR (CKD-EPI)AfAm (>60 ml/min/1.73 sqM) Est GFR (CKD-EPI)NonAf (>60 ml/min/1.73 sqM) Glucose (74-99) mg/dL Calcium (8.4-10.2) mg/dL Urine Color Urine Appearance (Clear) Urine pH (5.0-8.0) Ur Specific [place] (1.001-1.035) Urine Protein (Negative) Urine Glucose (UA) (Negative) Urine Ketones (Negative) Urine Blood (Negative) Urine Nitrite (Negative) Urine Bilirubin (Negative) Urine Urobilinogen (<2.0) mg/dL Ur Leukocyte Esterase (Negative) Urine RBC (0-5) /hpf Urine WBC (0-5) /hpf Ur Squamous Epith Cells (0-4) /hpf Urine Bacteria (None) /hpf Urine Mucus (None) /hpf Urine HCG, Qual Not Detected (Not Detectd) Trichomonas Ag (Rapid) (Negative) Blood Type O Positive Blood Type Recheck CABO Indicated Antibody Screen NEGATIVE Spec Expiration Date 07/30/2018230407/27/18 Range/Units 23:37 WBC (3.8-10.6) k/uL RBC (3.80-5.40) m/uL Hgb (11.4-16.0) gm/dL Hct (34.0-46.0) % MCV (80.0-100.0) fL MCH (25.0-35.0) pg MCHC (31.0-37.0) g/dL RDW (11.5-15.5) % Plt Count (150-450) k/uL Neutrophils % % Lymphocytes % % Monocytes % % Eosinophils % % Basophils % % Neutrophils # (1.3-7.7) k/uL Lymphocytes # (1.0-4.8) k/uL Monocytes # (0-1.0) k/uL Eosinophils # (0-0.7) k/uL Basophils # (0-0.2) k/uL Hypochromasia Anisocytosis Microcytosis PT (9.0-12.0) sec INR (<1.2) APTT (22.0-30.0) sec Sodium (137-145) mmol/L Potassium (3.5-5.1) mmol/L Chloride (98-107) mmol/L Carbon Dioxide (22-30) mmol/L Anion Gap mmol/L BUN (7-17) mg/dL Creatinine (0.52-1.04) mg/dL Est GFR (CKD-EPI)AfAm (>60 ml/min/1.73 sqM) Est GFR (CKD-EPI)NonAf (>60 ml/min/1.73 sqM) Glucose (74-99) mg/dL Calcium (8.4-10.2) mg/dL Urine Color Yellow Urine Appearance Cloudy H (Clear) Urine pH 6.5 (5.0-8.0) Ur Specific [place] 1.007 (1.001-1.035) Urine Protein Trace H (Negative) Urine Glucose (UA) Negative (Negative) Urine Ketones Negative (Negative) Urine Blood Large H (Negative) Urine Nitrite Negative (Negative) Urine Bilirubin Negative (Negative) Urine Urobilinogen <2.0 (<2.0) mg/dL Ur Leukocyte Esterase Large H (Negative) Urine RBC >182 H (0-5) /hpf Urine WBC 65 H (0-5) /hpf Ur Squamous Epith Cells 4 (0-4) /hpf Urine Bacteria Many H (None) /hpf Urine Mucus Occasional H (None) /hpf Urine HCG, Qual (Not Detectd) Trichomonas Ag (Rapid) (Negative) Blood Type Blood Type Recheck Antibody Screen Spec Expiration Date Disposition Clinical Impression: Trichomonas infection, Dysfunctional uterine bleeding, UTI (urinary tract infection) Disposition: HOME SELF-CARE Condition: Good Instructions: Menstruation (ED) Prescriptions: HYDROcodone/APAP 5-325MG [Chauvin 5-325] 1 tab PO Q6HR PRN #12 tab PRN Reason: Pain metroNIDAZOLE [Flagyl] 500 mg PO BID 7 Days #14 tab Sulfamethox-Tmp 800-160Mg [Bactrim DS 800-160 mg] 1 tab PO Q12HR 3 Days #6 tab Is patient prescribed a controlled substance at d/c from ED?: Yes When asked, does pt state using other controlled substances?: No If prescribed controlled substance>3 days was MAPS reviewed?: Prescribed <3 Days If opioid is for acute pain is fill amount 7 days or less?: No If Rx opioid, was Start Talking consent form obtained?: Yes Referrals: None,Stated [Primary Care Provider] - 1-2 days Senia Ty DO [Doctor of Osteopathic Medicine] - 1-2 days Time of Disposition: 00:54
[2018-07-27 23:49] VITALS: TEMP 98.2
[2018-07-27 23:55] LABS: Partial Thromboplastin Time 24.4 sec (22.0-30.0); Prothrombin Time 10.2 sec (9.0-12.0)
[2018-07-27 23:56] LABS: Anion Gap 10 mmol/L; Blood Urea Nitrogen 8 mg/dL (7-17); Calcium 9.2 mg/dL (8.4-10.2); Carbon Dioxide 22 mmol/L (22-30); Chloride 108 mmol/L (98-107); Glucose 84 mg/dL (74-99); Potassium 4.3 mmol/L (3.5-5.1); Sodium 140 mmol/L (137-145)
[2018-07-27 23:56] LABS: Appearance,Urine Cloudy (Clear); Bacteria,Urine Many /hpf; Bilirubin,Urine Negative (Negative); Blood,Urine Large (Negative); Color,Urine Yellow; Glucose,Urine (UA) Negative (Negative); Ketones,Urine Negative (Negative); Leukocyte Esterase,Urine Large (Negative); Mucus,Urine Occasional /hpf; Nitrite,Urine Negative (Negative); PH, Urine 6.5 (5.0-8.0); Protein,Urine Trace (Negative); RBC,Urine >182 /hpf (0-5); Specific Gravity,Urine 1.007 (1.001-1.035); Squamous Epithelial Cell,Urine 4 /hpf (0-4); Urobilinogen,Urine <2.0 mg/dL (<2.0); WBC,Urine 65 /hpf (0-5)
--- NOTE | 2018-07-28 00:18 | US ---
EXAMINATION TYPE: US pelvis comp w/tv w/doppler DATE OF EXAM: 07/28/2018 COMPARISON: NONE CLINICAL HISTORY: pain. TECHNIQUE: Transvaginal (TV) and Transabdominal (TA) . Transabdominal sonographic images of the pel vis were acquired. Transvaginal sonographic images were medically necessary to better assess the fol lowing anatomy: Ovaries Date of LMP: 06/29/2018 EXAM MEASUREMENTS: Uterus: 12.8 x 6.1 x 9.8 cm Endometrial Stripe: 1.2 cm Right Ovary: not definitively seen at this time Left Ovary: not definitively seen at this time Limited due to bowel gas, uterine size, and pt tolerance. 1. Uterus: Anteverted Multifibroid uterus largest 3 distinct areas measured (5.3 x 5.1 x 5.4cm)(2. 3 x 2.1 x 2.1cm)(4.8 x 5.3 x 5.2cm); nabothian cysts seen in cervix 2. Endometrium: Prominent 3. Right Ovary: Unable to distinguish specific ovarian tissue, pulse wave doppler taken of surroundi ng tissue; 3 hypoechoic areas noted in lt adnexa (2.2 x 2.8 x 2.8cm)(2.3 x 1.5 x 2.2cm)(4.1 x 2.3 x 2 .3cm) 4. Left Ovary: Unable to distinguish specific ovarian tissue, pulse wave doppler taken of surroundin g tissue; 2 hypoechoic areas; 1 w/ internal echogenic debris noted in lt adnexa (2.8 x 3.1 x 2.4cm)(3 .4 x 3.2 c 2.6cm) 5. Bilateral Adnexa: hypoechoic areas questionable ovarian related-See Right Ovary & Left Ovary- 6. Posterior cul-de-sac: trace free fluid in posterior cul de sac IMPRESSION: Enlarged fibroid uterus. Multiple cysts in the left and right adnexal regions consistent with multiple ovarian cysts. Some of the cysts are complex. There is normal arterial waveform demonst rated on the color Doppler images in both the left and right adnexa. No evidence of ovarian torsion. No free fluid.
[2018-07-28] MEDS ORDERED: AZITHROMYCIN 500 MG TAB PO STA (00:25)
[2018-07-28] MEDS ORDERED: cefTRIAXone 250 MG VIAL IM STA (00:26)
[2018-07-28 00:51] VITALS: BP 144/85; PULSE 80; RESP 16
[2018-07-30 16:06] LABS: C. trachomatis,PCR Equivocal (Neg,Equiv); Chlamydia trachomatis Source Vagina; N. gonorrhoeae,PCR Equivocal (Neg,Equiv); Neisseria Source Vagina
== END 2018-07-28 00:59 | disposition home or self-care (01) ==
LOC: EC 21:37
DX: A59.9 Trichomoniasis, unspecified (principal); N39.0 Urinary tract infection, site not specified; D25.9 Leiomyoma of uterus, unspecified; N88.8 Other specified noninflammatory disorders of cervix uteri; F17.200 Nicotine dependence, unspecified, uncomplicated
CPT/HCPCS: 99284; 96374; 96361; 96372; 36415; 86900; 86901; 80048; 85025; 85610; 85730; 86850; 81001; 81025; 87808; 87491; 87591; 87070; 93975; 76856; 76830; J2270; J0696; 87205; 93976

== ENCOUNTER 2018-08-09 18:16 | Emergency (ER) | payer BC ==
[2018-08-09 18:39] VITALS: RESP 18
[2018-08-09] MEDS ORDERED: ONDANSETRON 4 MG/2 ML VIAL IVP STA (19:13)
[2018-08-09] MEDS ORDERED: KETOROLAC 30 MG/ML 1 ML VIAL IVP STA (19:13)
[2018-08-09] MEDS ORDERED: SODIUM CHLORIDE 0.9% 1,000 ML IV ONE (19:13)
[2018-08-09] MEDS ORDERED: MORPHINE SULFATE 2 MG/ML SYRINGE IVP STA (19:13)
--- NOTE | 2018-08-09 19:27 | ED ---
Female Urogenital HPI - General Chief complaint: Vaginal Bleeding Stated complaint: Female -revisit Time Seen by Provider: 08/09/18 18:58 Source: patient Mode of arrival: ambulatory Limitations: no limitations - History of Present Illness Initial comments: 53-year-old female patient presents to the emergency department today for complaints of severe lower abdominal pain and heavy vaginal bleeding. Patient states she has been having heavy vaginal bleedings for the last 2 weeks. Patient states that this is very unusual for that she usually has fairly mild regular periods. Patient states that for the last 3 days the bleeding has increased in severity. Patient states she has been passing large clots. Patient states she has been feeling fatigued and weak. Patient states that the pain in her lower abdomen has worsened significantly. She states that the pain is located over the right lower quadrant abdomen is very tender to touch. Patient states she has felt feverish and chilled. States that the pain gets so bad that it causes her to be nauseous and she has had several episodes of vomiting. She denies any hematuria, dysuria, urinary urgency, urinary frequency. Patient denies taking any hormonal or control medications. Denies any history of similar symptoms. Patient denies any recent rash, shortness breath, chest pain, diarrhea, constipation, numbness, tingling, dizziness, weakness, headache, visual changes, or any other complaints. - Related Data Home Medications Medication Instructions Recorded Confirmed Ibuprofen [Motrin Ib] 600 mg PO Q6H 08/09/18 08/09/18 Previous Rx's Medication Instructions Recorded Hydrocodone/Acetaminophen [[place] 1 tab PO Q6HR PRN #12 tab 08/09/18 5-325] Allergies Allergy/AdvReac Type Severity Reaction Status Date / Time No Known Allergies Allergy Verified 08/09/18 19:30 Review of Systems ROS Statement: Those systems with pertinent positive or pertinent negative responses have been documented in the HPI. ROS Other: All systems not noted in ROS Statement are negative. Past Medical History Past Medical History: No Reported History History of Any Multi-Drug Resistant Organisms: None Reported Past Surgical History: Back Surgery Additional Past Surgical History / Comment(s): back surgery 2008, d and c Past Anesthesia/Blood Transfusion Reactions: No Reported Reaction Past Psychological History: No Psychological Hx Reported Smoking Status: Current every day smoker Past Alcohol Use History: None Reported Past Drug Use History: None Reported - Past Family History Father Additional Family Medical History / Comment(s): PE and DVT Mother Family Medical History: Coronary Artery Disease (CAD) Additional Family Medical History / Comment(s): 1st heart attack at 50 - passed at 67 from CAD General Exam Limitations: no limitations General appearance: alert, in no apparent distress, other (This is a well- developed, well-nourished adult female patient in no acute distress. Vital signs upon presentation are temperature 98.1F, pulse 92, respirations 18, blood pressure 129/79, pulse ox 100% on room air.) Eye exam: Present: normal appearance, PERRL, EOMI. Absent: scleral icterus, conjunctival injection, periorbital swelling ENT exam: Present: normal exam, normal oropharynx, mucous membranes moist Respiratory exam: Present: normal lung sounds bilaterally. Absent: respiratory distress, wheezes, rales, rhonchi, stridor Cardiovascular Exam: Present: regular rate, normal rhythm, normal heart sounds. Absent: systolic murmur, diastolic murmur, rubs, gallop, clicks GI/Abdominal exam: Present: soft, tenderness (Exquisite tenderness to the right lower quadrant abdomen. There is some guarding.), normal bowel sounds. Absent : distended, guarding, rebound, rigid Neurological exam: Present: alert, oriented X3, CN II-XII intact Psychiatric exam: Present: normal affect, normal mood Skin exam: Present: warm, dry, intact, normal color. Absent: rash Course Vital Signs 08/09/18 08/09/18 08/09/18 18:37 20:37 21:45 Temperature 98.1 F 98.2 F Pulse Rate 92 90 85 Respiratory 18 18 18 Rate Blood Pressure 129/79 135/68 131/83 O2 Sat by Pulse 100 100 100 Oximetry Medical Decision Making - Medical Decision Making 53-year-old female patient presents to the emergency department today for evaluation of right lower quadrant abdominal pain and heavy vaginal bleeding. Physical examination does reveal significant right lower quadrant tenderness with guarding. Labs reviewed and did reveal white blood cell count of 11.9, hemoglobin 9.3, urinalysis showed a cloudy appearance with 1+ protein, trace ketones, moderate blood, moderate leukocyte esterase, greater 182 red blood cells, 26 white blood cells, moderate mucus, no bacteria, this is felt to be blood contamination. Patient's hemoglobin did decrease by 1 g in the last 2 weeks. Patient remained hemodynamically stable. CT abdomen and pelvis was obtained and did reveal large fibroid uterus. My attending Dr. Horan did speak to the per diem registered nurse acetaldehyde converter operator Dr. Figueroa who is instructions include cleansing office in the morning to see if she can get a sooner appointment than her currently planned appointment on 09/02/2018. I did discuss findings and results with the patient. She'll be given pain management prescription. She is instructed to return immediately should her symptoms change or worsen. Return parameters were discussed in detail. She verbalizes understanding and agrees with this plan - Lab Data Result diagrams: 08/09/18 19:30 08/09/18 19:30 Lab Results 08/09/18 08/09/18 08/09/18 Range/Units 19:30 19:30 19:30 WBC 11.9 H (3.8-10.6) k/uL RBC 4.61 (3.80-5.40) m/uL Hgb 9.3 L (11.4-16.0) gm/dL Hct 31.5 L (34.0-46.0) % MCV 68.3 L (80.0-100.0) fL MCH 20.1 L (25.0-35.0) pg MCHC 29.4 L (31.0-37.0) g/dL RDW 16.7 H (11.5-15.5) % Plt Count 364 (150-450) k/uL Neutrophils % 81 % Lymphocytes % 14 % Monocytes % 4 % Eosinophils % 1 % Basophils % 0 % Neutrophils # 9.6 H (1.3-7.7) k/uL Lymphocytes # 1.6 (1.0-4.8) k/uL Monocytes # 0.5 (0-1.0) k/uL Eosinophils # 0.1 (0-0.7) k/uL Basophils # 0.0 (0-0.2) k/uL Hypochromasia Marked Anisocytosis Slight Microcytosis Marked PT 10.3 (9.0-12.0) sec INR 1.0 (<1.2) APTT 23.9 (22.0-30.0) sec Sodium 141 (137-145) mmol/L Potassium 4.4 (3.5-5.1) mmol/L Chloride 111 H (98-107) mmol/L Carbon Dioxide 23 (22-30) mmol/L Anion Gap 7 mmol/L BUN 13 (7-17) mg/dL Creatinine 0.55 (0.52-1.04) mg/dL Est GFR (CKD-EPI)AfAm >90 (>60 ml/min/1.73 sqM) Est GFR (CKD-EPI)NonAf >90 (>60 ml/min/1.73 sqM) Glucose 93 (74-99) mg/dL Calcium 8.9 (8.4-10.2) mg/dL Total Bilirubin 0.3 (0.2-1.3) mg/dL AST 18 (14-36) U/L ALT 22 (9-52) U/L Alkaline Phosphatase 57 (38-126) U/L Total Protein 6.4 (6.3-8.2) g/dL Albumin 3.6 (3.5-5.0) g/dL Urine Color Urine Appearance (Clear) Urine pH (5.0-8.0) Ur Specific Niles (1.001-1.035) Urine Protein (Negative) Urine Glucose (UA) (Negative) Urine Ketones (Negative) Urine Blood (Negative) Urine Nitrite (Negative) Urine Bilirubin (Negative) Urine Urobilinogen (<2.0) mg/dL Ur Leukocyte Esterase (Negative) Urine RBC (0-5) /hpf Urine WBC (0-5) /hpf Urine Mucus (None) /hpf 08/09/18 Range/Units 19:48 WBC (3.8-10.6) k/uL RBC (3.80-5.40) m/uL Hgb (11.4-16.0) gm/dL Hct (34.0-46.0) % MCV (80.0-100.0) fL MCH (25.0-35.0) pg MCHC (31.0-37.0) g/dL RDW (11.5-15.5) % Plt Count (150-450) k/uL Neutrophils % % Lymphocytes % % Monocytes % % Eosinophils % % Basophils % % Neutrophils # (1.3-7.7) k/uL Lymphocytes # (1.0-4.8) k/uL Monocytes # (0-1.0) k/uL Eosinophils # (0-0.7) k/uL Basophils # (0-0.2) k/uL Hypochromasia Anisocytosis Microcytosis PT (9.0-12.0) sec INR (<1.2) APTT (22.0-30.0) sec Sodium (137-145) mmol/L Potassium (3.5-5.1) mmol/L Chloride (98-107) mmol/L Carbon Dioxide (22-30) mmol/L Anion Gap mmol/L BUN (7-17) mg/dL Creatinine (0.52-1.04) mg/dL Est GFR (CKD-EPI)AfAm (>60 ml/min/1.73 sqM) Est GFR (CKD-EPI)NonAf (>60 ml/min/1.73 sqM) Glucose (74-99) mg/dL Calcium (8.4-10.2) mg/dL Total Bilirubin (0.2-1.3) mg/dL AST (14-36) U/L ALT (9-52) U/L Alkaline Phosphatase (38-126) U/L Total Protein (6.3-8.2) g/dL Albumin (3.5-5.0) g/dL Urine Color Red Urine Appearance Cloudy H (Clear) Urine pH 6.5 (5.0-8.0) Ur Specific [place] 1.020 (1.001-1.035) Urine Protein 1+ H (Negative) Urine Glucose (UA) Negative (Negative) Urine Ketones Trace H (Negative) Urine Blood Moderate H (Negative) Urine Nitrite Negative (Negative) Urine Bilirubin Negative (Negative) Urine Urobilinogen 2.0 (<2.0) mg/dL Ur Leukocyte Esterase Moderate H (Negative) Urine RBC >182 H (0-5) /hpf Urine WBC 26 H (0-5) /hpf Urine Mucus Moderate H (None) /hpf - Radiology Data Radiology results: report reviewed, image reviewed CT abdomen and pelvis with contrast was obtained. Report was reviewed in its entirety. Impression by Dr. Briones shows enlarged fibroid uterus. Left ovarian cyst. Multiple large uterine fibroids measuring up to 5 cm Disposition Clinical Impression: Dysfunctional uterine bleeding, Fibroid uterus, Ovarian cyst Disposition: HOME SELF-CARE Condition: Good Instructions: Dysfunctional Uterine Bleeding (ED), Ovarian Cyst (ED) Additional Instructions: Take medication as directed. Add ibuprofen in addition to the [place]. Call OB/ LABOR RELATIONS OFFICER office on Sunday to get sooner appointment. Return immediately for any new , worsening, or concerning symptoms. Prescriptions: Hydrocodone/Acetaminophen [[place] 5-325] 1 tab PO Q6HR PRN #12 tab PRN Reason: Pain Is patient prescribed a controlled substance at d/c from ED?: No Referrals: Senia Ty DO [Doctor of Osteopathic Medicine] - 1-2 days Time of Disposition: 21:25
[2018-08-09 19:48] LABS: Anisocytosis Slight; Basophils % (A) 0 %; Eosinophils # (A) 0.1 k/uL (0-0.7); Eosinophils % (A) 1 %; HCT 31.5 % (34.0-46.0); HGB 9.3 gm/dL (11.4-16.0); Hypochromasia Marked; Lymphocytes # (A) 1.6 k/uL (1.0-4.8); Lymphocytes % (A) 14 %; MCH 20.1 pg (25.0-35.0); MCHC 29.4 g/dL (31.0-37.0); MCV 68.3 fL (80.0-100.0); Mean Platelet Volume 6.5; Microcytosis Marked; Monocytes # (A) 0.5 k/uL (0-1.0); Monocytes % (A) 4 %; Neutrophils # (A) 9.6 k/uL (1.3-7.7); Neutrophils % (A) 81 %; Platelet Count 364 k/uL (150-450); RBC 4.61 m/uL (3.80-5.40); RDW 16.7 % (11.5-15.5); WBC 11.9 k/uL (3.8-10.6)
[2018-08-09 19:57] LABS: ALT 22 U/L (9-52); AST 18 U/L (14-36); Albumin 3.6 g/dL (3.5-5.0); Alkaline Phosphatase 57 U/L (38-126); Anion Gap 7 mmol/L; Blood Urea Nitrogen 13 mg/dL (7-17); Calcium 8.9 mg/dL (8.4-10.2); Carbon Dioxide 23 mmol/L (22-30); Chloride 111 mmol/L (98-107); Glucose 93 mg/dL (74-99); Potassium 4.4 mmol/L (3.5-5.1); Sodium 141 mmol/L (137-145); Total Bilirubin 0.3 mg/dL (0.2-1.3); Total Protein 6.4 g/dL (6.3-8.2)
[2018-08-09 19:58] LABS: Partial Thromboplastin Time 23.9 sec (22.0-30.0); Prothrombin Time 10.3 sec (9.0-12.0)
[2018-08-09 20:09] LABS: Appearance,Urine Cloudy (Clear); Bilirubin,Urine Negative (Negative); Blood,Urine Moderate (Negative); Color,Urine Red; Glucose,Urine (UA) Negative (Negative); Ketones,Urine Trace (Negative); Leukocyte Esterase,Urine Moderate (Negative); Mucus,Urine Moderate /hpf; Nitrite,Urine Negative (Negative); PH, Urine 6.5 (5.0-8.0); Protein,Urine 1+ (Negative); RBC,Urine >182 /hpf (0-5); WBC,Urine 26 /hpf (0-5)
--- NOTE | 2018-08-09 20:19 | CT ---
EXAMINATION TYPE: CT abdomen pelvis w con DATE OF EXAM: 08/09/2018 COMPARISON: None HISTORY: Pelvic pain x2 weeks CT DLP: 559.6 mGycm Automated exposure control for dose reduction was used. TECHNIQUE: Helical acquisition of images was performed from the lung bases through the pelvis. CONTRAST: Performed without Oral Contrast and with IV Contrast, patient injected with 100 mL of Isovue 300. FINDINGS: Lung bases are clear of consolidation. There is no pleural effusion. Heart size is normal. There is n o pericardial effusion. Liver shows no focal defect. Gallbladder appears normal. There are numerous calcified small splenic g ranulomata. There is no evidence of a pancreatic mass. Stomach appears normal. There is no adrenal mass. Kidneys show satisfactory contrast opacification. There is [address] anterior right kidney and left kidney. There is no hydronephrosis. Ureters are not dilated. There is no retroperitoneal adenopathy. Bladder distends smoothly. There is no free fluid in the pelvis the re is no inguinal hernia. There is an enlarged lobulated uterus consistent with multiple fibroids. Ut erus measures 13.2 x 6.6 cm. There is a 3 cm cyst on the left ovary. I see no intestinal wall thicken ing. There is no evidence of a bowel obstruction. There is no mesenteric edema or adenopathy. Appendix appears normal. Lumbar spine is intact. Bony pelvis is intact. IMPRESSION: ENLARGED FIBROID UTERUS. LEFT OVARIAN CYST. MULTIPLE LARGE UTERINE FIBROIDS MEASURE UP TO 5 CM.
[2018-08-09] MEDS ORDERED: HYDROmorphone 1 MG/ML 1 ML SYRINGE IVP STA (20:29)
[2018-08-09 21:46] VITALS: BP 131/83; PULSE 85; TEMP 98.2
== END 2018-08-09 21:46 | disposition home or self-care (01) ==
LOC: EC 18:16
DX: D25.9 Leiomyoma of uterus, unspecified (principal); N83.202 Unspecified ovarian cyst, left side; N93.8 Other specified abnormal uterine and vaginal bleeding; R82.4 Acetonuria; R80.9 Proteinuria, unspecified; R82.998 Other abnormal findings in urine; R50.9 Fever, unspecified; R53.83 Other fatigue; R53.1 Weakness; R11.2 Nausea with vomiting, unspecified; F17.200 Nicotine dependence, unspecified, uncomplicated; Z79.1 Long term (current) use of non-steroidal anti-inflammatories (NSAID)
CPT/HCPCS: 99284; 96374; 96375 ×3; 96361; 36415; 80053; 85025; 85610; 85730; 81001; 74177; J2405; J1885; J2270; J1170; Q9967

== ENCOUNTER → 2018-09-04 | Outpatient (CLI) | payer BC ==
[2018-09-04 10:30] LABS: Anisocytosis Slight; Basophils % (A) 1 %; Eosinophils # (A) 0.2 k/uL (0-0.7); Eosinophils % (A) 4 %; HCT 29.4 % (34.0-46.0); Hypochromasia Marked; Lymphocytes # (A) 1.6 k/uL (1.0-4.8); Lymphocytes % (A) 32 %; MCH 20.7 pg (25.0-35.0); MCHC 30.5 g/dL (31.0-37.0); Mean Platelet Volume 6.4; Microcytosis Marked; Monocytes # (A) 0.4 k/uL (0-1.0); Monocytes % (A) 7 %; Neutrophils # (A) 2.7 k/uL (1.3-7.7); Neutrophils % (A) 54 %; Platelet Count 411 k/uL (150-450); Poikilocytosis Slight; RBC 4.32 m/uL (3.80-5.40); RDW 16.6 % (11.5-15.5); WBC 4.9 k/uL (3.8-10.6)
== END | disposition home or self-care (01) ==
LOC: LABWHC1 08:48
PROVIDERS: ATTEND Obstetrics & Gynecology
DX: Z01.818 Encounter for other preprocedural examination (principal); Z01.812 Encounter for preprocedural laboratory examination
CPT/HCPCS: 36415; 85025; 86304; 93005